=== PATIENT | male | born 1965 | race Caucasian/White ===

== ENCOUNTER 2016-09-04 14:24 | Emergency (ER) | payer OTHER ==
[~2016-09-04] VITALS: Ht 177.8 cm; Wt 85.3 kg
[2016-09-04 14:26] VITALS: BP 183/121; PULSE 111; RESP 12; TEMP 98.2; O2SAT 100
[2016-09-04] MEDS ORDERED: VALS1TAB64 PO (14:35)
[2016-09-04] MEDS ORDERED: LIDOCAINE HCL 1% PF 30 ML VIAL ONE (14:42)
[2016-09-04] MEDS ORDERED: TETANUS/DIPHTHERIA TOXOID ADULT 0.5 ML VIAL IM ONE (14:45)
--- NOTE | 2016-09-04 14:58 | PD ---
HPI Chief Complaint: Musculoskeletal Complaint Time Seen by Provider: 14:41 Travel History International Travel<30 days: No Contact w/Intl Traveler<30days: No Traveled to known affect area: No History of Present Illness HPI The patient is a 51-year-old male who presents emergency department for an injury to the second digit of the left hand. The patient accidentally struck the second digit of the left hand while hammering a nail earlier today. He complains of pain of the distal aspect of the left hand with a laceration over the palm side of the second digit, left hand, distal to the distal interphalangeal joint. He does note some swelling of the second digit of the left hand with limited range of motion secondary to pain. The patient cannot recall his last tetanus shot. The patient is right-hand dominant. The patient is originally from [place], [place] and is returning home in 2 days, on Thursday. He denies any numbness or tingling, but does complain of hyperparesthesias of the affected area. Symptoms are mild to moderate, exacerbated after striking the second digit of his left hand with a hammer, and there are no current alleviating factors. PFSH Past Medical History Cardiovascular Problems: Yes (HTN) Hypertension: Yes Kidney Stones: Yes Tetanus Vaccination: Unknown Past Surgical History Other Surgery: Yes (LITHOTRIPSY) Social History Alcohol Use: Yes (SOCIALLY) Tobacco Use: Yes (CIGARS OCCAS) Substance Use: No Allergies-Medications (Allergen,Severity, Reaction): Coded Allergies: No Known Allergies (Unverified , 09/04/16) Reported Meds & Prescriptions Reported Meds & Active Scripts Active Reported Valsartan 80 Mg Tab 80 Mg PO DAILY Review of Systems Except as stated in HPI: all other systems reviewed are Neg Musculoskeletal: Positive: Edema, Pain Neurologic: No: Paresthesia, Sensory Disturbance Physical Exam Narrative GENERAL: Awake, alert, nontoxic-appearing 51-year-old male who appears his stated age and is in no acute respiratory distress. Skin: The patient has a macerated laceration of the volar aspect of the distal phalanx on the volar aspect. EYES: No injection or drainage. ENT: No nasal bleeding or discharge. Mucous membranes pink and moist. NECK: Trachea midline. No JVD. MUSCULOSKELETAL: Macerated laceration of the lower aspect of the second digit left hand. Nail is still intact. He is able flex the MCP, PIP, DIP with limited range of motion secondary to pain. Positive left radial pulse. NEUROLOGICAL: Awake and alert. No obvious cranial nerve deficits. Motor grossly within normal limits. Normal speech. Sensation is intact to soft touch of the distal aspect. PSYCHIATRIC: Appropriate mood and affect; insight and judgment normal. Data Data Last Documented VS Vital Signs Date Time Temp Pulse Resp B/P Pulse Ox O2 Delivery O2 Flow Rate FiO2 09/04/16 14:26 98.2 111 12 183/121 100 Orders Tetanus/Diphtheria Tox Adult (Tetanus/Di (09/04/16 14:45) Finger ([id number]) (09/04/16 ) Lidocaine Pf 1% Inj (Xylocaine-Mpf 1% In (09/04/16 14:42) Lidocaine 1% Inj (Xylocaine 1% Inj) (09/04/16 15:00) Lidocaine Pf 1% Inj (Xylocaine-Mpf 1% In (09/04/16 15:15) MDM Medical Decision Making Medical Screen Exam Complete: Yes Emergency Medical Condition: Yes Medical Record Reviewed: Yes Interpretation(s) X-ray of the second digit left hand reveals a distal phalanx fracture Differential Diagnosis Differential diagnosis includes laceration, tuft fracture, open tuft fracture, subungual hematoma, tendon laceration, neurovascular injury. Narrative Course The patient had a digital block with 1% lidocaine with a 27-gauge needle to the second digit of the left hand. X-ray was obtained of the second digit left hand. The patient's injury was repaired by the physician fitter's assistant, please refer to the procedure note. X-ray reveals a distal tuft fracture, consistent with open tuft fracture. The patient had his laceration repaired, nonadherent dressing applied, splint applied, and will be discharged home on Keflex, ibuprofen, and [place]. He is advised to follow-up with a hand surgeon on Thursday or Thursday when he returns to [place], [place]. Return if symptoms worsen or progress. Keep the area clean and dry. Procedures Procedure Narrative A digital block was performed to the second digit of the left hand with 1% lidocaine using a 27-gauge needle, the patient tolerated the procedure without difficulty and there was no obvious complications. Diagnosis Primary Impression: Open fracture of tuft of distal phalanx of finger Qualified Code: S62.639B - Open fracture of tuft of distal phalanx of finger, initial encounter Patient Instructions: General Instructions Additional Instructions: Please provide a patient a copy of his x-ray results at discharge. Antibiotics and pain medications as directed. Follow-up with your primary physician and/or hand surgeon. Return if symptoms worsen or progress. Med/Other Pt SpecificInfo: Prescription(s) given Scripts Ibuprofen 400 Mg [id number] Mg PO Q6H PRN (PAIN SCALE 1 TO 10) #20 TAB Ref 0 Prov:Mark Schneider MD 09/04/16 Hydrocodone-Acetaminophen ([place])5-325 mg Tab1 Tab PO Q6H PRN (PAIN) #15 TAB Ref 0 Prov:Mark Schneider MD 09/04/16 Cephalexin (Keflex)500 Mg [id number] Mg PO Q6H 7 Days Ref 0 Prov:Mark Schneider MD 09/04/16 Disposition: 01 DISCHARGE HOME Condition: Stable Mark Schneider MD Sep 04, 2016 14:58
[2016-09-04] MEDS ORDERED: LIDOCAINE HCL 1% 30 ML VIAL INFIL ONE (15:00)
[2016-09-04] MEDS ORDERED: LIDOCAINE HCL 1% PF 30 ML VIAL INFIL ONE (15:15)
[2016-09-04] MEDS ORDERED: IBUP400T20 PO (15:16)
[2016-09-04] MEDS ORDERED: CEPH-460 PO (15:16)
[2016-09-04] MEDS ORDERED: NORC5TAB PO (15:16)
--- NOTE | 2016-09-04 15:17 | RADRPT ---
EXAM DATE/TIME: 09/04/2016 14:57 [facility] COMPARISON: No previous studies available for comparison. INDICATIONS : Smashed left hand, second digit with hammer. Pain and laceration in left hand, second digit. MEDICAL HISTORY : None. SURGICAL HISTORY : None. ENCOUNTER: Initial ACUITY: 1 day PAIN SCORE: 5/10 LOCATION: Left hand, second digit. FINDINGS: There is a fracture and soft tissue injury to the distal portion of the second finger. The fracture i s involving the terminal tuft of the distal phalanx. No joint dislocation is seen. No definite foreig n bodies. Rest of bony structures are grossly intact. CONCLUSION: There is a fracture involving the terminal tuft of the distal phalanx. There is a soft tissue injury to the tip of the finger. Laci Bowers MD on September 04, 2016 at 15:13 Board Certified Radiologist. This report was verified electronically.
[2016-09-04] MEDS ORDERED: VALS1TAB65 PO (15:23)
[2016-09-04] MEDS ORDERED: VALSARTAN 160 MG TAB PO ONE (15:30)
--- NOTE | 2016-09-04 16:46 | PD ---
Physical Exam Time Seen by Provider: 15:55 Narrative I was asked by Dr. Schneider to repair a laceration of this patient. Please see his note for further details. Data Data Last Documented VS Vital Signs Date Time Temp Pulse Resp B/P Pulse Ox O2 Delivery O2 Flow Rate FiO2 09/04/16 14:26 98.2 111 12 183/121 100 Orders Tetanus/Diphtheria Tox Adult (Tetanus/Di (09/04/16 14:45) Finger ([id number]) (09/04/16 ) Lidocaine Pf 1% Inj (Xylocaine-Mpf 1% In (09/04/16 14:42) Lidocaine 1% Inj (Xylocaine 1% Inj) (09/04/16 15:00) Lidocaine Pf 1% Inj (Xylocaine-Mpf 1% In (09/04/16 15:15) Support Splint (09/04/16 15:18) Valsartan (Diovan) (09/04/16 15:30) Finger Splint (09/04/16 ) MDM Medical Record Reviewed: Yes Supervised Visit with CRISTY: Yes Procedures Procedure Narrative LACERATION LOCATION: Left thumb LENGTH: 2 cm, complex NUMBER OF STITCHES/MATEO: 5 simple interrupted, 2 absorbable simple interrupted REPAIR: The area of the laceration was prepped with Betadine and sterilely draped. The laceration was infiltrated with 1% lidocaine. The wound was copiously irrigated and explored without evidence of foreign body, tendon injury or neurovascular injury. The wound was closed using 6-0 Vicryl and 4-0 Prolene. This was a single layer repair. A sterile dressing was applied. The patient was advised to keep the dressing clean and dry. Patient tolerated the procedure well. Diagnosis Primary Impression: Open fracture of tuft of distal phalanx of finger Qualified Code: S62.639B - Open fracture of tuft of distal phalanx of finger, initial encounter Referrals: Family Practice Physician call for appointment Hand Surgeon call for appointment Patient Instructions: General Instructions, Care For Your Stitches (ED), Laceration (ED), Finger Fracture (ED), Acute Wound Care (ED), Diphtheria Tetanus and Pertussis Vaccine (ED) Departure Forms: Tests/Procedures Additional Instruction: Please provide a patient a copy of his x-ray results at discharge. Antibiotics and pain medications as directed. Follow-up with your primary physician and/or hand surgeon. Return if symptoms worsen or progress. Scripts Valsartan 160 Mg [id number] Mg PO DAILY #20 TAB Ref 0 Prov:Mark Schneider MD 09/04/16 Ibuprofen 400 Mg [id number] Mg PO Q6H PRN (PAIN SCALE 1 TO 10) #20 TAB Ref 0 Prov:Mark Schneider MD 09/04/16 Hydrocodone-Acetaminophen ([place])5-325 mg Tab1 Tab PO Q6H PRN (PAIN) #15 TAB Ref 0 Prov:Mark Schneider MD 09/04/16 Cephalexin (Keflex)500 Mg [id number] Mg PO Q6H 7 Days Ref 0 Prov:Mark Schneider MD 09/04/16 Disposition: 01 DISCHARGE HOME Condition: Stable Crystal Diaz Sep 04, 2016 16:45
== END 2016-09-04 16:18 | disposition home or self-care (01) ==
LOC: PHEFT 14:24
DX: S62.631B Displaced fracture of distal phalanx of left index finger, initial encounter for open fracture (principal); W20.8XXA Other cause of strike by thrown, projected or falling object, initial encounter; Y93.H3 Activity, building and construction
CPT/HCPCS: 12041; 73140; 90471; 90714; 96372